=== PATIENT | male | born 1965 | race Caucasian/White ===

== ENCOUNTER 2022-06-14 13:48 | Outpatient (CLI) | payer BC, SELFPAY ==
--- NOTE | 2022-06-14 14:43 | ECG_ITS ---
Measurements Intervals [place] Rate: 83 P: 48 MT: 166 QRS: -9 QRSD: 93 T: 14 QT: 367 QTc: 433 Interpretive Statements SINUS RHYTHM BASELINE ARTIFACT CANNOT RULE OUT INFERIOR MYOCARDIAL INFARCTION, AGE INDETERMINATE ABNORMAL ECG NO PREVIOUS ECG AVAILABLE FOR COMPARISON Electronically Signed On 06-14-2022 15:28:53 CDT by Lucien Gao M.D.
[2022-06-14 15:28] LABS: Basophils Percent Auto 0.3 % (0.2-1.2); Eosinophils Absolute Auto 0.2 K/mm3 (0-0.3); Eosinophils Percent Auto 2.2 % (0-4.4); Hematocrit 37.8 % (42.0-52.0); Hemoglobin 12.7 g/dL (14.0-18.0); Immature Granulocyte Absolute 0.02 K/mm3 (0.00-0.031); Immature Granulocyte Percent A 0.3 % (0-0.5); Lymphocytes Absolute Auto 1.67 K/mm3 (0.9-3.2); Lymphocytes Percent Auto 24.1 % (18.3-44.2); Mean Corpuscular HGB Conc 33.6 g/dl (32-36); Mean Corpuscular Hemoglobin 33.4 pg (26-34); Mean Corpuscular Volume 99.5 fl (80-100); Mean Platelet Volume 9.9 fl (7.4-10.4); Monocytes Absolute Auto 0.6 K/mm3 (0.1-0.6); Monocytes Percent Auto 8.2 % (2.6-8.5); Neutrophils Absolute Auto 4.5 K/mm3 (1.3-6.7); Neutrophils Percent Auto 64.9 % (45.5-73.1); Platelet Count Result 189 k/mm3 (150-375); Red Cell Distribution Width 12.9 % (11.5-14.5); White Blood Count 6.9 K/mm3 (4.5-10.0)
[2022-06-14 15:41] LABS: Albumin Level 4.6 g/dL (3.5-5.1); Anion Gap 13 mmol/L (8-16); Blood Urea Nitrogen 19 mg/dL (9-20); Calcium 9.2 mg/dL (8.4-10.2); Carbon Dioxide 25 mmol/L (22-30); Chloride 100 mmol/L (98-107); Estimated Glomerular Filt Rate > 60; Glucose 268 mg/dL (65-110); Potassium 3.8 mmol/L (3.4-5.0); Sodium 138 mmol/L (137-145)
[2022-06-14 15:43] LABS: Hemoglobin A1C 9.7 % (<5.7)
[2022-06-14 15:46] LABS: INR 1.1
[2022-06-14 15:47] LABS: Partial Thromboplastin Time 29.6 SECONDS (22.3-36.8)
[2022-06-14 16:28] LABS: Urine Cotinine NEGATIVE
[2022-06-14 17:19] LABS: Appearance Urine Slightly Cloudy (Clear); Bilirubin Urine Negative (Negative); Blood Urine Negative (Negative); Color Urine Yellow (Yellow); Glucose Urine UA 3+ mg/dL (Negative); Ketones Urine Trace mg/dL (Negative); Leukocyte Esterase Ur Negative LEU/UL (Negative); Nitrate Urine Negative (Negative); Protein Urine Negative (Negative); Specific Grav Ur 1.025 (1.001-1.035)
[2022-06-14 17:30] LABS: Mucus Urine Rare /lpf; RBC Urine 0-2 /hpf (0-2); Squamous Epithelial Cell Urine Rare /hpf (Few); WBC Urine 0-3 /hpf
[2022-06-14 17:33] LABS: Add Urine Microscopic? YES
== END 2022-06-14 13:49 | disposition home or self-care (01) ==
LOC: ANHSURGERY 13:52
PROVIDERS: PCP Family Medicine; Visit Provider Orthopaedic Surgery
DX: Z01.818 Encounter for other preprocedural examination (principal); M16.11 Unilateral primary osteoarthritis, right hip; R94.31 Abnormal electrocardiogram [ECG] [EKG]; I25.2 Old myocardial infarction; Z51.81 Encounter for therapeutic drug level monitoring; Z79.899 Other long term (current) drug therapy
CPT/HCPCS: 80048; 80307; 81001; 82040; 83036; 85025; 85610; 85730; 86850; 86900; 86901; 87081; 93005

== ENCOUNTER 2022-06-27 01:20 | Day surgery (SDC) | payer BC, SELFPAY ==
[2022-06-14 14:06] VITALS: BMI 31.1
--- NOTE | 2022-06-14 14:25 | PC.NURSE ---
Report to the Outpatient Waiting Room, entrance under the green pavilion located off [facility], at time __0600 on date 06/27/22 . OR Time: _0730__. Time changes happen often and if your time is changed the preop area will call you the afternoon before. - You and your visitor will be asked to self-screen and do not enter if you have any COVID symptoms. - Only one visitor and NO children visitors are allowed at this time. - The patient visitor is requested to leave or wait in car when not with patient due to restrictions. - A mask is required within the hospital. Patients may have clear liquids (water, carbonated beverages, clear teas, apple juice) until 3 hours prior to surgery with a maximum of 20 ounces. - No food from midnight until time of surgery - Infants may have breast milk until 4 hours before surgery, infant formula 6 hours prior to surgery. - Children will be allowed to drink immediately following surgery. If applicable, please bring a bottle or sippy cup to assist with drinking. Juice, water, soda, and popsicles are readily available. For infants on formula, please bring formula the day of surgery. Pacifiers are allowed. Take the following medications with a SIP of water the morning of surgery: NONE Medications to discontinue per physician ___ALEVE PER DR BHATIA Date to take last dose Please no make-up, nail malay, hairspray, perfume, deodorant, or body powder the day of surgery. No jewelry (including any body piercings) or valuables the day of surgery, leave them at home. Please take a shower or bath the night before, or the morning of, surgery with an antibacterial soap. Wear comfortable, loose fitting clothing. Children are encouraged to wear pajamas. - Jewelry must be removed prior to entering the operating room. Rings and piercings that are not removed may be cut off. - The hospital will not accept responsibility for valuables. - Please leave all valuables, including medications, at home the day of surgery. If you are going home after surgery, a licensed entry level truck driver must drive you home. - NO public transportation without another adult. - We recommend that an adult stay with you for 24 hours following discharge. - We also recommend that you do not drive, make important decision, drink alcoholic beverages, or take any drugs that were not prescribed by your health care provider for at least 24 hours after your discharge time. For Pediatric surgeries, we recommend two adults accompany the child home (only one inside the building at this time). Follow any additional instructions given to you from your surgeon. If you or anyone in your household have experienced Covid symptoms in the past week, please notify your surgeon or the nurse liaison at the phone number below for possible testing. VERBAL AND WRITTEN instructions given to _PATIENT and asked if any additional questions and then verbalized understanding. Patient advised to call surgeon office or pre surgery nurse liaison [phone] if any additional questions.
[2022-06-14 14:45] VITALS: BP 122/80; PULSE 95; RESP 18; TEMP 36.7; O2SAT 98
--- NOTE | 2022-06-26 13:35 | WPDANESEPPF ---
Anes - Initial Pre Proc Eval Procedure: Operation Date: 06/27/22 07:30 Proposed Procedures p Right Total Hip Arthroplasty - Dawson Cho MD Date/Time: 06/26/22 13:35 Surgeon: Dawson Cho MD Pre Op Diagnosis: right hip djd Patient Data Age: 56 Gender: M Height: 1.88 m Weight: 109.8 kg Last Vital Signs Temp 36.7 C 06/14/22 14:45 Pulse 95 06/14/22 14:45 Resp 18 06/14/22 14:45 BP 122/80 06/14/22 14:45 Pulse Ox 98 06/14/22 14:45 O2 Del Method Room Air 06/14/22 14:45 Allergies Allergy/AdvReac Type Severity Reaction Status Date / Time egg Allergy Nausea and Verified 06/26/22 13:50 Vomiting metformin Allergy Gastrointestinal Verified 06/26/22 13:50 Upset Home Medications Medication Instructions Recorded Confirmed Type sitagliptin 100 mg tablet (Januvia) 100 mg PO DAILY #90 tabs 06/12/22 06/14/22 Rx bisacodyl 5 mg tablet,delayed 5 mg PO DAILY 06/14/22 06/14/22 History release (Dulcolax (bisacodyl)) naproxen sodium 220 mg capsule 660 mg PO Q12H PRN Pain 06/14/22 06/14/22 History (Aleve) omeprazole magnesium 20 mg 20 mg PO DAILY 06/14/22 06/14/22 History tablet,delayed release (Prilosec OTC) blood sugar diagnostic (Blood #100 ea 06/15/22 Rx Glucose Test strips) blood-glucose meter,continuous #1 ea 06/15/22 Rx glimepiride 2 mg tablet 2 mg PO QAM #30 tabs 06/15/22 06/15/22 Rx lancets #100 ea 06/15/22 06/15/22 Rx testosterone cypionate 200 mg/mL 200 mg IM ONCE 06/15/22 History intramuscular oil chlorhexidine gluconate 4 % 1 applic topical ONCE #237 mL 06/20/22 Rx topical liquid (Hibiclens) Patient hx anesthesia problems: none Family hx anesthesia problems: none Results Review: All pre-operative results and documents have been reviewed as part of the pre-operative evaluation. [facility] Past Medical History Medical History Degenerative joint disease (DJD) of hip Diabetes GERD (gastroesophageal reflux disease) Preoperative clearance Right hip pain Surgical History Surgical History H/O knee surgery History of carpal tunnel release History of cholecystectomy History of colon resection History of repair of rotator cuff Family History Family History Father Carcinoma of colon Social History Social History Smoking status: Never smoker Additional smoking assessment comments: DENIES ANY FORM OF TOBACCO USE Alcohol intake: never Substance use: never Living arrangements: with family Additional occupation/education comments: [employer] Gender identity (if verbalized by the patient): Male Spiritual care concerns: No Agree to blood products: Yes Anes - Eval Final PreProcedure Day of Procedure 06/26/22 13:35 Patient weight: obese Heart: regular rate and rhythm Lungs: clear to auscultation Airway: Mallampati scale class II Neurological: alert and oriented Last oral intake: >/= 8 hours ASA classification: III Emergent: no Anesthetic plan: proceed Anesthesia type and monitoring: general ETT and standard monitoring Results Review: All pre-operative results and documents have been reviewed as part of the pre-operative evaluation. Informed Consent: The patient's anesthetic plan and its attendant risks and benefits were discussed with the patient/family/POA. Questions were solicited and answers provided to the satisfaction of the patient/family/POA.
[2022-06-27] VITALS (19 sets, daily range): BP systolic 95–135; BP diastolic 53–94; PULSE 82–122; RESP 14–20; TEMP 36.1–36.6; O2SAT 92–99; BMI 31.4
--- NOTE | ~2022-06-27 | XR_ITS ---
EXAMINATION: XR hip RT min 2V DATE: 06/27/2022 12:06 INDICATION: Total right hip arthroplasty. Postop. TECHNIQUE: 2 views of right hip were obtained. COMPARISON: Right hip radiographs 05/22/2022 FINDINGS: There is a total right hip arthroplasty in near-anatomic alignment. No fracture. There is g as in the soft tissues, consistent with recent surgery. IMPRESSION: 1. Total right hip arthroplasty in near-anatomic alignment. Reviewed, dictated and finalized at location B.
[2022-06-27 06:36] LABS: Glucose Point of Care 230 mg/dl (65-105)
[2022-06-27] MEDS: LACTATED RINGERS 1,000 ML 30 ML IV CONT ×2 (06:45→11:19)
[2022-06-27] MEDS: TRANEXAMIC ACID 1,000MG/ISO100 1,000 MG/100 ML BAG 200 MG IVPB (06:45)
[2022-06-27] MEDS: INSULIN HUMAN REGULAR (*BKC) 100 UNITS/ML IV PUSH ×2 (07:00→11:42)
[2022-06-27] MEDS: ACETAMINOPHEN 500 MG TABLET 1000 MG PO (07:00)
--- NOTE | 2022-06-27 07:18 | WPDHPUPDATE1 ---
History and Physical Update Update Date/Time: 06/27/22 07:18 History and Physical has been reviewed, including an updated exam of the patient. There are NO changes in the patient's condition. Risks, benefits, and alternatives have been discussed and questions answered. Patient agrees to proceed with procedure.
[2022-06-27] MEDS: ceFAZolin 2 GM/D5W 50 ML 2 GM/50 ML BAG IVPB ×3 (07:36→22:56)
[2022-06-27] MEDS: TRANEXAMIC ACID 1,000 MG/10 ML AMPUL 1000 MG IV PUSH (10:10)
--- NOTE | 2022-06-27 11:32 | W.PM.PROC2 ---
Procedure Note - Detailed Date of Procedure 06/27/22 Pre-op Diagnosis right hip djd Post-op Diagnosis Same Procedure Performed R [facility] Surgeon Dawson Cho MD Anesthesia General Description of Procedure THE PATIENT WAS TAKEN TO THE OPERATING ROOM IN STABLE CONDITION AND WAS PLACED IN THE LATERAL DECUBITUS AND THE RIGHT LOWER EXTREMITY WAS PREPPED AND DRAPED IN THE STERILE FASHION. INCISION WAS MADE IN THE POSTERIOR LATERAL SIDE OF THE HIP, DOWN TO THE FASCIA LAYER. THE FASCIA WAS INCISED. THE HIP WAS EXPOSED. THE SHORT EXTERNAL ROTATORS WERE EXPOSED. THE SCIATIC NERVE WAS IDENTIFIED. INCISION WAS MADE THROUGH THE SHORT EXTERNAL ROTATORS AND THE CAPSULE OF THE HIP JOINT. THE HIP WAS DISLOCATED. AN OSTEOTOMY WAS MADE TO THE FEMORAL NECK ABOUT 1 CM PROXIMAL TO THE LESSER TROCHANTER. THE ACETABULUM WAS EXPOSED. THERE WAS SEVERE DJD SEEN. BEGINNING WITH A 48 REAMER THE ACETABULUM WAS REAMED TO 59 MM. A 59 MM TRIAL WAS PLACED IN 35 DEG OF ABDUCTION AND ANTEVERSION WAS IN ALIGNMENT WITH THE TRANS ACETABULAR LIGAMENT. THE FIT WAS EXCELLENT. THE TRIAL WAS REMOVED. A 60 MM BIOMET G7 COMPONENT WAS THEN TAPPED IN TO PLACE IN 35 DEG OF ABDUCTION AND ANTEVERSION IN ALIGNMENT WITH THE TRANSVERSE ACETABULAR LIGAMENT. THE FIT WAS EXCELLENT. THE ACETABULAR LINER WAS PLACED AND CHECKED FOR STABILITY. NEXT THE FEMUR WAS PREPARED WITH INITIAL CANAL FINDER THEN SEQUENTIAL BROACHING WITH A TAPERLOC HIP SYSTEM, UNTIL A 14 BROACH FIT WELL IN 15 OF ANTEVERSION. A +3 STANDARD OFFSET NECK WITH 36 MM HEAD TRIAL WAS PLACED. THE SHUCK TEST WAS EXCELLENT AND THE STABILITY IN FLEXION AND ROTATION WAS EXCELLENT. LEG LENGTHS WERE GROSSLY EQUAL. TRIALS WERE REMOVED. A BIOMET TAPERLOC 14 STEM WAS PLACED WITH A STANDARD OFFSET NECK. THE FIT WAS EXCELLENT IN 15 DEG OF ANTEVERSION. A +3 CERAMIC 36 MM FEMORAL HEAD WAS PLACED. THE HIP WAS TRIALED AND THE STABILITY WAS EXCELLENT WERE THE LEG LENGTHS AND THE SHUCK TEST. THE WOUND WAS IRRIGATED WITH STERILE BETADINE AND WATER FOR 3 MIN. THEN WASHED AGAIN. THE SCIATIC NERVE WAS IDENTIFIED AGAIN. THE CAPSULE AND THE EXTERNAL ROTATORS WERE APPROXIMATED WITH NUMBER 1 VICRYL. THE FASCIA WITH No 2 QUIL AND THE SUB CUTANEOUS LAYER WITH 2-0 ABSORBABLE SUTURE AND A RUNNING 3-0 SUBCUTICULAR STITCH FOR THE SKIN. DERMABOND WAS PLACED AND STERILE DRESSING WAS APPLIED. PATIENT WAS PLACED BACK ON TO THE [place]PINE POSITION AND WAS EXTUBATED Estimated Blood Loss -800.0 Complications No immediate complications Condition Stable Disposition PACU
[2022-06-27 12:04] LABS: Hematocrit 34.7 % (42.0-52.0); Hemoglobin 11.4 g/dL (14.0-18.0)
--- NOTE | 2022-06-27 12:05 | SUR.PHASEI ---
Dr. Lazcano notified of patient being tachycardia 120's with diaphoresis. BP and other vitals stable at this time. H&H drawn and sent to lab, awaiting results.
[2022-06-27 12:06] LABS: Glucose Point of Care 258 mg/dl (65-105)
[2022-06-27 12:27] LABS: Glucose Point of Care 264 mg/dl (65-105)
[2022-06-27] MEDS: KETOROLAC 15 MG/ML VIAL (*BKC) IV PUSH ×3 (13:49→23:44)
[2022-06-27] MEDS: SODIUM CHLORIDE 0.9% IV 1,000 ML 125 ML IV CONT (13:52)
--- NOTE | 2022-06-27 17:13 | ADMGEN ---
This patient, David Torrez, was admitted to [address] [facility] Surg Room 328-01. Patient/family oriented to hospital policies and general routines including ID bracelet, bed and alarms, visiting hours, pain management, procedures, bathroom and other care routines, personal items, smoking policy, room service/diet, and visiting hours. Information on how to activate the Rapid Response Team has been discussed. Patient/Family are encouraged to report perceived risks to care and to ask questions if they do not understand what they are told or what they should do.
[2022-06-27 17:19] LABS: Glucose Point of Care 272 mg/dl (65-105)
[2022-06-27] MEDS: SENNA/DOCUSATE SODIUM TABLET 2 TAB PO (18:05)
[2022-06-27] MEDS: HYDROcodone/acetaminophen (*CRX) 7.5-325 MG TABLET 2 TAB PO (20:34)
[2022-06-27] MEDS: ASPIRIN 325 MG ENTERIC TABLET PO (20:34)
[2022-06-27 20:41] LABS: Glucose Point of Care 404 mg/dl (65-105)
[2022-06-27] MEDS: INSULIN ASPART (*BKC) 100 UNITS/ML 8 UNITS SUB-Q (21:30)
[2022-06-27 23:40] LABS: Glucose Point of Care 416 mg/dl (65-105)
[2022-06-27] MEDS: ACETAMINOPHEN 325 MG TABLET 650 MG PO (23:56)
[2022-06-27] MEDS: INSULIN ASPART (*BKC) 100 UNITS/ML 10 UNITS SUB-Q (23:58)
[2022-06-28 01:33] LABS: Glucose Point of Care 299 mg/dl (65-105)
[2022-06-28 03:11] VITALS: BP 125/71; PULSE 98; RESP 18; TEMP 36.4; O2SAT 95
[2022-06-28 06:00] VITALS: BP 125/71; PULSE 98; RESP 19; TEMP 36.4; O2SAT 95
[2022-06-28] MEDS: KETOROLAC 15 MG/ML VIAL (*BKC) IV PUSH ×2 (06:03→11:05)
[2022-06-28] MEDS: ceFAZolin 2 GM/D5W 50 ML 2 GM/50 ML BAG IVPB (06:04)
[2022-06-28 06:17] LABS: Glucose Point of Care 292 mg/dl (65-105)
[2022-06-28 06:45] LABS: Basophils Percent Auto 0.1 % (0.2-1.2); Hematocrit 27.8 % (42.0-52.0); Hemoglobin 9.3 g/dL (14.0-18.0); Immature Granulocyte Absolute 0.06 K/mm3 (0.00-0.031); Immature Granulocyte Percent A 0.5 % (0-0.5); Lymphocytes Absolute Auto 0.97 K/mm3 (0.9-3.2); Lymphocytes Percent Auto 7.7 % (18.3-44.2); Mean Corpuscular HGB Conc 33.5 g/dl (32-36); Mean Corpuscular Hemoglobin 33.7 pg (26-34); Mean Corpuscular Volume 100.7 fl (80-100); Mean Platelet Volume 9.7 fl (7.4-10.4); Monocytes Absolute Auto 1.2 K/mm3 (0.1-0.6); Monocytes Percent Auto 9.2 % (2.6-8.5); Neutrophils Absolute Auto 10.5 K/mm3 (1.3-6.7); Neutrophils Percent Auto 82.5 % (45.5-73.1); Platelet Count Result 163 k/mm3 (150-375); Red Blood Count 2.76 M/mm3 (4.6-6.20); Red Cell Distribution Width 13.3 % (11.5-14.5); White Blood Count 12.7 K/mm3 (4.5-10.0)
[2022-06-28 06:50] LABS: Anion Gap 10 mmol/L (8-16); Blood Urea Nitrogen 25 mg/dL (9-20); Calcium 8.4 mg/dL (8.4-10.2); Carbon Dioxide 25 mmol/L (22-30); Chloride 99 mmol/L (98-107); Estimated CRCL calculation 108 ml/min; Estimated Glomerular Filt Rate > 60; Glucose 247 mg/dL (65-110); Potassium 4.3 mmol/L (3.4-5.0); Sodium 134 mmol/L (137-145)
[2022-06-28 07:35] LABS: Glucose Point of Care 262 mg/dl (65-105)
--- NOTE | 2022-06-28 07:49 | WPDANESPN ---
Anes - Prog Note Post-Op Date/Time: 06/28/22 07:49 Cardiovascular status: normal Respiratory status: normal Airway patency: baseline Mental status: baseline Post-Op hydration status: normal Vital Signs: Last Vital Signs Temp 36.4 C 06/28/22 06:00 Pulse 98 06/28/22 06:00 Resp 19 06/28/22 06:00 BP 125/71 06/28/22 06:00 Pulse Ox 95 06/28/22 06:00 O2 Del Method Room Air 06/27/22 20:00 O2 Flow Rate 2 06/27/22 13:15 Pain Score (VAS): 11/17 I/O: Intake & Output 06/27/22 06/27/22 06/28/22 15:59 23:59 07:59 Intake Total 350 1150 350 Output Total 400 1150 550 Balance -50 0 -200 Laboratory Tests 06/28/22 06:04 06/28/22 06:04 06/27/22 06/27/22 06/27/22 11:28 11:53 12:24 WBC RBC Hgb 11.4 L Hct 34.7 L MCV MCH MCHC RDW Plt Count MPV Immature Gran % (Auto) Neut % (Auto) Lymph % (Auto) [place] % (Auto) Eos % (Auto) Baso % (Auto) Lymph # (Auto) [place] # (Auto) Eos # (Auto) Baso # (Auto) Abs Immat Gran (auto) Absolute Neuts (auto) Absolute Nucleated RBC Nucleated RBC % Sodium Potassium Chloride Carbon Dioxide Anion Gap BUN Creatinine Estim Creat Clear Calc Estimated GFR Glucose POC Capillary Glucose 258 H 264 H Calcium 06/27/22 06/27/22 06/27/22 17:08 20:33 23:32 WBC RBC Hgb Hct MCV MCH MCHC RDW Plt Count MPV Immature Gran % (Auto) Neut % (Auto) Lymph % (Auto) [place] % (Auto) Eos % (Auto) Baso % (Auto) Lymph # (Auto) [place] # (Auto) Eos # (Auto) Baso # (Auto) Abs Immat Gran (auto) Absolute Neuts (auto) Absolute Nucleated RBC Nucleated RBC % Sodium Potassium Chloride Carbon Dioxide Anion Gap BUN Creatinine Estim Creat Clear Calc Estimated GFR Glucose POC Capillary Glucose 272 H 404 H 416 H Calcium 06/28/22 06/28/22 06/28/22 01:30 06:03 06:04 WBC 12.7 H RBC 2.76 L Hgb 9.3 L Hct 27.8 L MCV 100.7 H MCH 33.7 MCHC 33.5 RDW 13.3 Plt Count 163 MPV 9.7 Immature Gran % (Auto) 0.5 Neut % (Auto) 82.5 H Lymph % (Auto) 7.7 L [place] % (Auto) 9.2 H Eos % (Auto) 0.0 Baso % (Auto) 0.1 L Lymph # (Auto) 0.97 [place] # (Auto) 1.2 H Eos # (Auto) 0.0 Baso # (Auto) 0.0 Abs Immat Gran (auto) 0.06 H Absolute Neuts (auto) 10.5 H Absolute Nucleated RBC 0.0 Nucleated RBC % 0.0 Sodium Potassium Chloride Carbon Dioxide Anion Gap BUN Creatinine Estim Creat Clear Calc Estimated GFR Glucose POC Capillary Glucose 299 H 292 H Calcium 06/28/22 06/28/22 06:04 07:31 WBC RBC Hgb Hct MCV MCH MCHC RDW Plt Count MPV Immature Gran % (Auto) Neut % (Auto) Lymph % (Auto) [place] % (Auto) Eos % (Auto) Baso % (Auto) Lymph # (Auto) [place] # (Auto) Eos # (Auto) Baso # (Auto) Abs Immat Gran (auto) Absolute Neuts (auto) Absolute Nucleated RBC Nucleated RBC % Sodium 134 L Potassium 4.3 Chloride 99 Carbon Dioxide 25 Anion Gap 10 BUN 25 H Creatinine 0.90 Estim Creat Clear Calc 108 Estimated GFR > 60 Glucose 247 H POC Capillary Glucose 262 H Calcium 8.4 Post-procedural complaints: none Patient Feedback: Patient satisfied with anesthetic care.
[2022-06-28] MEDS: INSULIN ASPART (*BKC) 100 UNITS/ML SUB-Q ×2 (08:11→11:28)
[2022-06-28] MEDS: BISACODYL 5 MG TABLET EC PO (08:12)
[2022-06-28] MEDS: PANTOPRAZOLE 40 MG TABLET PO (08:13)
[2022-06-28] MEDS: ASPIRIN 325 MG ENTERIC TABLET PO (08:13)
[2022-06-28] MEDS: SENNA/DOCUSATE SODIUM TABLET 2 TAB PO (08:13)
[2022-06-28 11:18] LABS: Glucose Point of Care 287 mg/dl (65-105)
[2022-06-28 13:37] VITALS: BP 101/67; PULSE 111; RESP 19; TEMP 36.1; O2SAT 96
[2022-06-28] MEDS: ACETAMINOPHEN 325 MG TABLET 650 MG PO (15:19)
--- NOTE | 2022-06-28 16:46 | PM.PNORT ---
Progress Note: A&P Assessment and Plan (1) S/P total hip arthroplasty: Code(s): Z96.649 - Presence of unspecified artificial hip joint Status: Acute Assessment and Plan: POD 1 DOING WELL. GOOD PROGRESS WITH PT. OK TO DC HOME, F/U IN 3 WEEKS. Subjective Subjective Date/Time Seen: 06/28/22 16POD 1 DOING WELL. 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 Objective Data Vital Signs Vital Signs: Vital Signs - 24 hr 06/27/22 17:18 06/27/22 17:00 06/27/22 20:00 Temperature 36.2 C L Pulse Rate 102 H Respiratory Rate 16 Blood Pressure 107/61 Pulse Oximetry 99 Oxygen Delivery Room Air Room Air 06/27/22 22:00 06/27/22 23:11 06/28/22 03:11 Temperature 36.6 C 36.1 C L 36.4 C Pulse Rate 117 H 114 H 98 Respiratory Rate 16 17 18 Blood Pressure 121/54 L 110/94 H 125/71 Pulse Oximetry 95 96 95 Oxygen Delivery 06/28/22 06:00 06/28/22 13:37 Temperature 36.4 C 36.1 C L Pulse Rate 98 111 H Respiratory Rate 19 19 Blood Pressure 125/71 101/67 Pulse Oximetry 95 96 Oxygen Delivery Intake/Output Intake/Output: Intake & Output 06/25/22 06/26/22 06/27/22 06/28/22 23:59 23:59 23:59 23:59 Intake Total 1600 1070 Output Total 1550 550 Balance 50 520 Meds/Results Medications: Active Medications Generic Name Dose Route Start Last Admin Trade Name Freq PRN Reason Stop Dose Admin Acetaminophen 650 mg 06/27/22 13:26 06/28/22 15:19 Acetaminophen 325 Mg Tablet PO 650 mg Q6H PRN Administration Mild Pain (1-3) or Fever Hydrocodone Bitart/Acetaminophen 1 tab 06/27/22 13:26 Hydrocodone/Acetaminophen (*Crx) 7.5-325 Mg Tablet PO Q3H PRN Pain Rated 4-6 Hydrocodone Bitart/Acetaminophen 2 tab 06/27/22 13:26 06/27/22 20:34 Hydrocodone/Acetaminophen (*Crx) 7.5-325 Mg Tablet PO 2 tab Q6H PRN Administration Pain Rated 7-10 Aspirin 325 mg 06/27/22 21:00 06/28/22 08:13 Aspirin 325 Mg Enteric Tablet PO 325 mg Q12HR NIXON Administration Bisacodyl 5 mg 06/28/22 09:00 06/28/22 08:12 Bisacodyl 5 Mg Tablet Ec PO 5 mg DAILY NIXON Administration Dextrose 12.5 gm 06/27/22 21:00 Dextrose 50% 25 Gm/50 Ml Syringe IV PUSH PRN PRN Hypoglycemia Protocol Diazepam 5 mg 06/27/22 13:26 Diazepam (*Crx) 5 Mg Tablet PO Q6H PRN Anxiety/Muscle Spasm Glucagon 1 mg 06/27/22 21:00 Glucagon For Inj 1 Mg Vial IM PRN PRN Hypoglycemia Protocol Glucose 15 gm 06/27/22 21:00 Glucose Oral Gel 15 Gm Of Glucse In 37.5 Gm Tube PO PRN PRN Hypoglycemia Protocol Hydroxyzine HCl 50 mg 06/27/22 13:26 Hydroxyzine Hcl 25 Mg Tablet PO Q4H PRN Itching Dextrose 1,000 mls @ 100 mls/hr 06/27/22 21:00 Dextrose 5% 1,000 Ml IVPB PRN PRN Hypoglycemia Protocol Insulin Aspart 4 - 8 units 06/28/22 08:00 06/28/22 11:28 Insulin Aspart (*Bkc) 100 Units/Ml SUB-Q 5 units TIDWM NIXON Administration Protocol Naloxone HCl 0.1 mg 06/27/22 13:26 Naloxone Hcl 0.4 Mg/Ml Vial IV PUSH Q2M PRN Opiate Reversal Pantoprazole Sodium 40 mg 06/28/22 09:00 06/28/22 08:13 Pantoprazole 40 Mg Tablet PO 07/28/22 08:59 40 mg DAILY NIXON Administration Polyethylene Glycol 17 gm 06/28/22 09:00 06/28/22 08:10 Polyethylene Glycol 3350 17 Gm Powd.Pack PO Not Given QAM NIXON Senna/Docusate Sodium 2 tab 06/27/22 17:00 06/28/22 08:13 Senna/Docusate Sodium Tablet PO 2 tab BID NIXON Administration Sitagliptin Phosphate 100 mg 06/28/22 09:00 06/28/22 08:12 Sitagliptin 100 Mg Tablet PO 100 mg DAILY NIXON Administration Radiology Results: ITS Impressions Hip X-Ray 06/27/22 12:08 IMPRESSION: 1. Total right hip arthroplasty in near-anatomic alignment. Labs Labs: Laboratory Results - last 24 hr 06/27/22 06/27/22 06/27/22 17:08 20:33 23:32 WB
--- NOTE | 2022-06-28 16:48 | PM.DS ---
DS: Admitting Diagnosis Discharge Date 06/28/22 Admitting Diagnosis RIGHT HIP DJD DS: Discharge Diagnosis Discharge Diagnosis (1) Degenerative joint disease (DJD) of hip: Qualifiers: Osteoarthritis type: primary Laterality: right Qualified Code(s): M16.11 - Unilateral primary osteoarthritis, right hip Code(s): M16.9 - Osteoarthritis of hip, unspecified Status: Acute (2) S/P total hip arthroplasty: Code(s): Z96.649 - Presence of unspecified artificial hip joint Status: Acute DS: Summary Hospital Course Reason for hospitalization: RIGHT HIP REPLACEMENT Hospital Course: PATIENT WAS ADMITTED S/P TOTAL HIP ARTHROPLASTY FOR POSTOPERATIVE MEDICAL MANAGEMENT, PAIN CONTROL AND MOBILIZATION WITH PHYSICAL AND OCCUPATIONAL THERAPY. THE PATIENT PROGRESSED WELL WITH PT/OT. LABS AND VITALS REMAINED STABLE AND PAIN WELL CONTROLLED. THE PATIENT HAS BEEN CLEARED TO BE DISCHARGED HOME. FOLLOW UP APPOINTMENT SCHEDULED. DISCHARGE INSTRUCTIONS DISCUSSED AT LENGTH WITH THE PATIENT. MEDICATIONS REVIEWED. Status at Discharge Cognitive/behavioral status at discharge: STABLE Overall status at discharge: patient is not back to baseline Time Spent with Patient Time attestation: Total time spent providing and/or coordinating discharge services: DS: Data Data Completed and Pending Labs on day of discharge: Labs from last 24 hours 06/28/22 06/28/22 06/28/22 11:14 07:31 06:04 WBC RBC Hgb Hct MCV MCH MCHC RDW Plt Count MPV Immature Gran % (Auto) Neut % (Auto) Lymph % (Auto) [place] % (Auto) Eos % (Auto) Baso % (Auto) Lymph # (Auto) [place] # (Auto) Eos # (Auto) Baso # (Auto) Abs Immat Gran (auto) Absolute Neuts (auto) Absolute Nucleated RBC Nucleated RBC % Sodium 134 L Potassium 4.3 Chloride 99 Carbon Dioxide 25 Anion Gap 10 BUN 25 H Creatinine 0.90 Estim Creat Clear Calc 108 Estimated GFR > 60 Glucose 247 H POC Capillary Glucose 287 H 262 H Calcium 8.4 06/28/22 06/28/22 06/28/22 06:04 06:03 01:30 WBC 12.7 H RBC 2.76 L Hgb 9.3 L Hct 27.8 L MCV 100.7 H MCH 33.7 MCHC 33.5 RDW 13.3 Plt Count 163 MPV 9.7 Immature Gran % (Auto) 0.5 Neut % (Auto) 82.5 H Lymph % (Auto) 7.7 L [place] % (Auto) 9.2 H Eos % (Auto) 0.0 Baso % (Auto) 0.1 L Lymph # (Auto) 0.97 [place] # (Auto) 1.2 H Eos # (Auto) 0.0 Baso # (Auto) 0.0 Abs Immat Gran (auto) 0.06 H Absolute Neuts (auto) 10.5 H Absolute Nucleated RBC 0.0 Nucleated RBC % 0.0 Sodium Potassium Chloride Carbon Dioxide Anion Gap BUN Creatinine Estim Creat Clear Calc Estimated GFR Glucose POC Capillary Glucose 292 H 299 H Calcium 06/27/22 06/27/22 06/27/22 23:32 20:33 17:08 WBC RBC Hgb Hct MCV MCH MCHC RDW Plt Count MPV Immature Gran % (Auto) Neut % (Auto) Lymph % (Auto) [place] % (Auto) Eos % (Auto) Baso % (Auto) Lymph # (Auto) [place] # (Auto) Eos # (Auto) Baso # (Auto) Abs Immat Gran (auto) Absolute Neuts (auto) Absolute Nucleated RBC Nucleated RBC % Sodium Potassium Chloride Carbon Dioxide Anion Gap BUN Creatinine Estim Creat Clear Calc Estimated GFR Glucose POC Capillary Glucose 416 H 404 H 272 H Calcium Discharge Plan Discharge Patient Disposition: Home Health Service Discharge Instructions: Post Op Total Hip Replacement Instructions Dr. Dawson Cho [phone] Your dressing will be changed prior to your discharge. You will be sent home with one additional dressing to be changed on post op day 7 by the home health RN. You may remove the dressing on post op day 14. Your incision was closed with dermabond, allow the dermabond to fall off naturally once your dressing is removed. Do no
== END 2022-06-28 17:30 | disposition home health service (06) ==
LOC: ANHSURGERY 05:47 → ANH2MED 13:29 → ANH3MEDSUR 16:59
PROVIDERS: PCP Family Medicine; Visit Provider Orthopaedic Surgery
PROC: (CPT 27130; principal; 2022-06-27 07:30)
DX: M16.11 Unilateral primary osteoarthritis, right hip (principal); E11.9 Type 2 diabetes mellitus without complications; K21.9 Gastro-esophageal reflux disease without esophagitis
CPT/HCPCS: 27130; 36415; 73502; 80048; 82948; 85014; 85018; 85025; 97110; 97116; 97161; 97165; 97530; 97535; 99199; A9270; C1776; J0171; J0690; J1100; J1170; J1815; J1885; J2250; J2270; J2370; J2405; J2704; J2765; J2795; J3010; J7030; J7120

== ENCOUNTER 2023-07-23 13:51 | Outpatient (CLI) | payer BC, SELFPAY | END 2023-07-23 13:52 | disposition home or self-care (01) | LOC: ANHAUDIO 13:53 | PROVIDERS: PCP Family Medicine; Visit Provider Otolaryngology | DX: H90.3 Sensorineural hearing loss, bilateral (principal) | CPT/HCPCS: 92557; 92567 ==

== ENCOUNTER 2025-06-29 14:18 | Outpatient (CLI) | payer BC, SELFPAY | END 2025-06-29 14:19 | disposition home or self-care (01) | LOC: ANHAUDIO 14:19 | PROVIDERS: PCP Nurse Practitioner Family; Visit Provider Otolaryngology | DX: H91.93 Unspecified hearing loss, bilateral (principal) | CPT/HCPCS: 92557; 92567 ==